=== PATIENT | male | born 1955 | race Caucasian/White ===

== ENCOUNTER 2023-07-06 11:12 | Emergency (ER) | payer BC, SELFPAY ==
[2023-07-06 11:22] VITALS: BP 151/98; PULSE 74; RESP 16; TEMP 36.2; O2SAT 98
--- NOTE | 2023-07-06 11:25 | ED.EAR ---
HPI - Ear Problem General Chief complaint: Ear Stated complaint: Ears Irritation Time Seen by Provider: 07/06/23 11:25 Source: patient Mode of arrival: ambulatory Limitations: no limitations History of Present Illness HPI Narrative: 68-year-old male presented For complaint of bilateral ear decreased hearing. States he had pain in the left ear last night. Endorses he lost hearing of the right ear last week in a few days ago of the left ear. Denies Significant nasal congestion, tinnitus, dizziness, ear drainage, nausea, vomiting, fevers or chills. He took Mucinex. MD Complaint: ear pain Related Data Allergies Allergy/AdvReac Type Severity Reaction Status Date / Time No Known Allergies Allergy Verified 07/06/23 11:30 Review of Systems Review of Systems: CONSTITUTIONAL: Denies malaise, chills, or fever. EYES: Denies visual changes, redness, or discharge. ENT: Denies rhinorrhea, congestion, sinus pain, and sore throat. Reports ear pain CARDIOVASCULAR: Denies chest pain, palpitations, or edema. RESPIRATORY: Denies cough or dyspnea. GASTROINTESTINAL: Denies abdominal pain, nausea, vomiting, diarrhea SKIN: Denies rash or itching. MUSCULOSKELETAL: Denies myalgia. NEUROLOGIC: Denies headache. All systems reviewed & are unremarkable except as noted in HPI and below PMFSH Past Medical History Medical History (Updated 07/06/23 @ 11:35 by Sasha Cox APRN) CAD (coronary artery disease) Surgical History Surgical History (Updated 07/06/23 @ 11:34 by Sasha Cox APRN) History of heart artery stent Social History Social History (Updated 07/06/23 @ 11:35 by Sasha Cox APRN) Smoking packs per day: 1 Smoking cigarettes per day: 20.0 Smoking status: Current every day smoker Tobacco type: cigarettes Comments At time of signature, agree with nursing past medical, surgical, social and family history. There is no relevant family history pertinent to the presenting complaint Exam Narrative: GENERAL: Well-appearing EYES: PERRLA, conjunctivae clear ENT: Nares clear. Mucous membranes moist. bilateral TMs erythematous, bulging and intact; canals not erythematous, no drainage; no tragal tenderness. Oropharynx not erythematous without lesions. CHEST: Clear to auscultation, breath sounds equal. HEART: Regular rate and rhythm. No murmur heard. SKIN: Warm, dry, no rash. NEURO: Alert and oriented x3. PSYCH: Normal mood and affect Course Course Emergency Course: Patient is aware of diagnosis, understands and agrees to treatment plan. Anticipatory guidance given. Patient agrees to follow-up as directed and is aware of reasons to seek care at the emergency department. Portions of this record may have been created with voice recognition software Level of Care: Express Care Visit Vital Signs Vital signs: Vital Signs Temperature 97.2 F L 07/06/23 11:22 Pulse Rate 74 07/06/23 11:22 Respiratory Rate 16 07/06/23 11:22 Blood Pressure 151/98 H 07/06/23 11:22 Pulse Oximetry 98 07/06/23 11:22 Oxygen Delivery Room Air 07/06/23 11:22 Temperature 97.2 F L 07/06/23 11:22 Pulse Rate 74 07/06/23 11:22 Respiratory Rate 16 07/06/23 11:22 Blood Pressure 151/98 H 07/06/23 11:22 Pulse Oximetry 98 07/06/23 11:22 Oxygen Delivery Room Air 07/06/23 11:22 Reviewed Medical Decision Making MDM Narrative Medical decision making narrative: discussed physical exam findings consistent with bilateral otitis media. Advised supportive measures and signs/symptoms to go to the ER. Patient is appropriate for outpatient treatment and follow-up. Differential Diagnosis Differential Diagnosis: Coronavirus, strep pharyngitis, allergic rhinitis, upper respiratory tract infection, sinusitis, rhinosinusitis, nasopharyngitis, viral pharyngitis, otitis media, otitis externa, eustachian tube dysfunction, foreign body, cerumen impaction. Vital Signs Vital Signs: Vital Signs Temperatu
== END 2023-07-06 11:35 | disposition home or self-care (01) ==
PROVIDERS: Emergency Provider Nurse Practitioner Family; PCP Family Medicine
DX: H66.003 Acute suppurative otitis media without spontaneous rupture of ear drum, bilateral (principal); F17.210 Nicotine dependence, cigarettes, uncomplicated; I25.10 Atherosclerotic heart disease of native coronary artery without angina pectoris
CPT/HCPCS: 99213; G0463